=== PATIENT | female | born 1940 | race Hispanic/Latino ===

== ENCOUNTER 2017-12-04 22:28 | Emergency (ER) | payer OTHER ==
[2017-12-04] MEDS ORDERED: LEVOFLOXACIN 500 MG TABLET ONE (23:36)
[2017-12-04] MEDS ORDERED: DEXAMETHASONE SOD PHOSPHATE 10MG/ML 1ML VIAL ONE (23:36)
[2017-12-04] MEDS ORDERED: IPRATROPIUM/ALBUTEROL SULFATE 3 ML SOLUTION IH ONE (23:46)
== END 2017-12-05 00:21 | disposition home or self-care (01) ==
LOC: EDH 22:28
DX: J20.9 Acute bronchitis, unspecified (principal); M06.9 Rheumatoid arthritis, unspecified; Z88.8 Allergy status to other drugs, medicaments and biological substances; Z98.890 Other specified postprocedural states
CPT/HCPCS: 71046; 94640; 96372; 99284; J1100

== ENCOUNTER 2018-07-04 10:56 | Emergency (ER) | payer OTHER ==
[2018-07-04] MEDS ORDERED: ACETAMINOPHEN-CODEINE 300/30MG TAB ONE (11:35)
[2018-07-04] MEDS ORDERED: KETOROLAC TROMETHAMINE 30MG/ML ONE (11:35)
[2018-07-04] MEDS ORDERED: ONDANSETRON ODT 4 MG TAB ONE (12:48)
== END 2018-07-04 13:30 | disposition home or self-care (01) ==
LOC: EDH 10:56
DX: M62.838 Other muscle spasm (principal); M54.2 Cervicalgia; M06.9 Rheumatoid arthritis, unspecified; Z98.890 Other specified postprocedural states; Z72.0 Tobacco use; Z90.710 Acquired absence of both cervix and uterus
CPT/HCPCS: 72125; 96372; 99284; J1885

== ENCOUNTER → 2018-07-22 | Outpatient (CLI) | payer OTHER | END | disposition home or self-care (01) | LOC: OIH 09:34 | PROVIDERS: ATTEND Family Medicine | DX: K44.9 Diaphragmatic hernia without obstruction or gangrene (principal); I70.0 Atherosclerosis of aorta; M47.895 Other spondylosis, thoracolumbar region; J20.9 Acute bronchitis, unspecified | CPT/HCPCS: 71046 ==

== ENCOUNTER → 2019-03-30 | Outpatient (CLI) | payer OTHER | END | disposition home or self-care (01) | LOC: OIH 10:17 | PROVIDERS: ATTEND Family Medicine | DX: Z01.818 Encounter for other preprocedural examination (principal); J44.9 Chronic obstructive pulmonary disease, unspecified; K44.9 Diaphragmatic hernia without obstruction or gangrene | CPT/HCPCS: 71046 ==

== ENCOUNTER 2020-11-04 17:02 | Emergency (ER) | payer MEDICARE ==
[2020-11-04] MEDS ORDERED: ONDANSETRON 4MG INJ ONE (17:04)
[2020-11-04] MEDS ORDERED: POTASSIUM BICARB/CIT AC 25 MEQ TABLET.EFF ONE (17:05)
[2020-11-04] MEDS ORDERED: ACETAMINOPHEN 325 MG TAB ONE (17:29)
== END 2020-11-04 19:12 | disposition home or self-care (01) ==
LOC: EDH 17:02
DX: S00.83XA Contusion of other part of head, initial encounter (principal); M06.9 Rheumatoid arthritis, unspecified; Z72.0 Tobacco use; Z88.8 Allergy status to other drugs, medicaments and biological substances; W07.XXXA Fall from chair, initial encounter; Y93.89 Activity, other specified; Y92.89 Other specified places as the place of occurrence of the external cause; Y99.8 Other external cause status
CPT/HCPCS: 70450; 72125; 82948; 99285; J2405

== ENCOUNTER → 2020-11-08 | Outpatient (CLI) | payer MEDICARE | END | disposition home or self-care (01) | LOC: RAH 13:13 | PROVIDERS: ATTEND Family Medicine | DX: M19.072 Primary osteoarthritis, left ankle and foot (principal); M86.8X7 Other osteomyelitis, ankle and foot | CPT/HCPCS: 73700 ==

== ENCOUNTER → 2020-12-14 | Outpatient (CLI) | payer MEDICARE | END | disposition home or self-care (01) | LOC: OIH 11:37 | PROVIDERS: ATTEND Family Medicine | DX: M19.031 Primary osteoarthritis, right wrist (principal); M85.841 Other specified disorders of bone density and structure, right hand; R22.31 Localized swelling, mass and lump, right upper limb | CPT/HCPCS: 73110 ==

== ENCOUNTER → 2021-01-24 | Outpatient (CLI) | payer MEDICARE | END | disposition home or self-care (01) | LOC: OIH 10:53 | PROVIDERS: ATTEND Internal Medicine | DX: M19.071 Primary osteoarthritis, right ankle and foot (principal); M19.072 Primary osteoarthritis, left ankle and foot; M19.041 Primary osteoarthritis, right hand; M19.042 Primary osteoarthritis, left hand; M85.80 Other specified disorders of bone density and structure, unspecified site; M17.0 Bilateral primary osteoarthritis of knee; M25.461 Effusion, right knee | CPT/HCPCS: 73630 ==

== ENCOUNTER 2021-11-19 05:42 | Day surgery (SDC) | payer MEDICARE ==
[2021-11-16 15:12] LABS: EOSINOPHILS % (AUTO) 13.3 % (0.0-8.0); HEMATOCRIT 35.1 % (36-48); LYMPHOCYTES % (AUTO) 20.7 % (21.0-51.0); MEAN CORPUSCULAR HEMOGLOBIN 28.2 pg (27.0-33.0); MEAN CORPUSCULAR HGB CONC 30.8 g/dL (32.0-36.0); MEAN CORPUSCULAR VOLUME 91.6 fL (79-99); MONOCYTES % (AUTO) 8.9 % (3.0-13.0); NEUTROPHILS % (AUTO) 54.8 % (40.0-77.0); PLATELET COUNT (AUTO) 239 K/uL (130-400); RED BLOOD CELL COUNT(AUTO) 3.83 MIL/uL (4.00-5.50); RED CELL DISTRIBUTION WIDTH 16.9 % (11.0-15.5)
[2021-11-16 15:17] LABS: APPEARANCE,URINE CLOUDY (CLEAR); BILIRUBIN,URINE NEGATIVE (NEGATIVE); COLOR,URINE YELLOW (YELLOW); GLUCOSE, URINE (UA) NEGATIVE (NEGATIVE); KETONES,URINE NEGATIVE (NEGATIVE); LEUKOCYTE ESTERASE ,URINE NEGATIVE (NEGATIVE); NITRATE,URINE NEGATIVE (NEGATIVE); OCCULT BLOOD,URINE SMALL (NEGATIVE); PROTEIN,URINE NEGATIVE (NEGATIVE); UROBILINOGEN,URINE 0.2 mg/dL (0.2-1.0)
[2021-11-16 15:20] VITALS: BP 179/62
[2021-11-16 15:22] LABS: POTASSIUM 4.2 mmol/L (3.5-5.1)
[2021-11-16 15:25] LABS: INR 0.97 (0.85-1.15); PROTHROMBIN TIME 10.6 SEC (9.6-11.6)
[2021-11-16 15:26] LABS: PARTIAL THROMBOPLASTIN TIME 27.1 SEC (26.3-35.5)
[2021-11-16 15:40] LABS: BACTERIA,URINE Moderate /HPF (None Seen); RBC,URINE None Seen /HPF (0-1); SQUAMOUS EPITHELIAL CELL,UR 0-2 /HPF (0-2); WBC,URINE 0-1 /HPF (0-1)
[2021-11-19] VITALS (12 sets, daily range): BP systolic 104–134; BP diastolic 32–61
[~2021-11-19] VITALS: Ht 154.9 cm; Wt 61.1 kg
[~2021-11-19 05:42] MED LIST: ASPI-1026 PO; ATOR40TA71 PO; CLOP75TA32 PO; ESCI-8 PO; PRED5TAB PO; TRAM50TA4 PO
[2021-11-19] MEDS ORDERED: 0.9%NACL 1000ML 1,000 ML IV ONE (06:10)
[2021-11-19] MEDS ORDERED: IODIXANOL 320 MG/ML 100 ML VIAL ONE (07:09)
[2021-11-19] MEDS ORDERED: MIDAZOLAM HCL 1 MG/ML 2ML VIAL ONE (07:09)
[2021-11-19] MEDS ORDERED: HEPARIN 1,000 UNIT VIAL ONE (07:09)
[2021-11-19] MEDS ORDERED: NITROGLYCERIN 50MG VIAL ONE (07:09)
[2021-11-19] MEDS ORDERED: FENTANYL CITRATE PF 50 MCG/1 ML 2ML VIAL ONE (07:09)
[2021-11-19] MEDS ORDERED: HEPARIN 10,000 UNIT/10ML (1,000 UNIT/ML) VIAL ONE (07:09)
[2021-11-19] MEDS ORDERED: LIDOCAINE HCL 400MG/20ML VIAL ONE (07:10)
[2021-11-19] MEDS ORDERED: DiphenhydrAMINE HCL 50 MG/ML VIAL IVP PRN (08:00)
[2021-11-19] MEDS ORDERED: 0.9%NACL 1000ML 1,000 ML IV SCH ×2 (08:00→09:30)
[2021-11-19] MEDS ORDERED: ASPIRIN 325MG EC TAB PO ONE (09:12)
[2021-11-19] MEDS ORDERED: TICAGRELOR 90 MG TABLET ONE (09:12)
[2021-11-19] MEDS ORDERED: GLUCAGON 1MG KIT 1 MG ML IM PRN (09:30)
[2021-11-19] MEDS ORDERED: DEXTROSE 50%-WATER 50 ML DISP.SYRIN IV PRN (09:30)
[2021-11-19] MEDS ORDERED: INSULIN HUMULIN R 100 UNIT/ML 3ML SQ SCH (11:30)
[2021-11-19] MEDS ORDERED: TRAMADOL HCL 50 MG TABLET ONE (11:55)
[2021-11-19] MEDS ORDERED: TRAMADOL HCL 50 MG TABLET PO PRN (12:00)
[2021-11-19] MEDS ORDERED: TICAGRELOR 90 MG TABLET PO SCH (21:00)
[2021-11-20] MEDS ORDERED: CLOPIDOGREL 75MG TAB PO SCH (09:00)
== END 2021-11-19 15:50 | disposition home or self-care (01) ==
LOC: DAH 05:42
PROVIDERS: ATTEND Internal Medicine Cardiovascular Disease
DX: I70.238 Atherosclerosis of native arteries of right leg with ulceration of other part of lower leg (principal); I70.92 Chronic total occlusion of artery of the extremities; I10 Essential (primary) hypertension; M06.9 Rheumatoid arthritis, unspecified; E78.5 Hyperlipidemia, unspecified; F17.210 Nicotine dependence, cigarettes, uncomplicated; E78.00 Pure hypercholesterolemia, unspecified; Z79.01 Long term (current) use of anticoagulants; Z79.899 Other long term (current) drug therapy; Z98.890 Other specified postprocedural states; Z79.82 Long term (current) use of aspirin
CPT/HCPCS: 36415 ×2; 75710; 75774; 80048; 81001; 85025; 85347; 85610; 85730; 87077; 87088; 87186; 93005; A4215; A4216; A4221; A4222; A4223 ×3; A4335; A4606; A4663; C1725; C1727; C1760; C1769 ×2; C1887; C1893; C1894 ×2; C9764; C9772; J1200; J1644 ×3; J2250; J3010; J3490 ×2; J7030; Q9967; 75716; 96360; 96361; 99156; 99157